=== PATIENT | male | born 1955 | race Caucasian/White ===

== ENCOUNTER → 2017-06-24 16:55 | Outpatient (CLI) | payer OTHER, SELFPAY ==
--- NOTE | 2017-06-24 17:18 | MRI_ITS ---
STUDY: MRI CERVICAL SPINE WITH AND WITHOUT CONTRAST REASON FOR EXAM: Male, 61 years old. Status post neck fusion 09/2016, with complaints of numbness of the bilateral hands and throbbing pain in the area of fusion. TECHNIQUE: Standardized fat and water weighted pulse sequences were obtained in the sagittal and axial following I.V. administration of 10 ml of Gadavist contrast material. COMPARISON: None FINDINGS: Normal foramen magnum and brainstem-cervical cord junction. Normal craniovertebral junction. Normal anterior atlantoaxial articulation. Normal odontoid process. Normal cervical lordosis. Degenerative vertebral bodies and posterior osseous elements. Posterior laminectomy changes extending from C3 through C7. No evidence of posterior fluid collection or significant posterior soft tissue edema. Multilevel facet fusion hardware extending from C3 through C7 are present. C2-3: Disc desiccation is noted at this level with mild right para foraminal disc bulge without associated spinal canal narrowing or foraminal narrowing. C3-4: Disc degenerative change and disc osteophyte complex eccentric to the right with compounding uncovertebral joint arthropathy resulting in moderate right foraminal narrowing. C4-5: Degenerative disc changes with disc osteophyte complex eccentric to the right with compounding facet arthropathy resulting in moderate right foraminal narrowing. C5-6: Degenerative disc changes and disc osteophyte complex with bilateral uncovertebral joint arthropathy resulting in moderate bilateral foraminal narrowing. No significant spinal canal narrowing. C6-7: Disc osteophyte complex and uncovertebral joint arthropathy resulting in mild bilateral foraminal narrowing. C7-T1: Degenerative disc changes with no associated spinal canal narrowing or foraminal narrowing. Normal cervical cord. Normal visualized soft tissue structures. MRI/Spine Cervical W/WO Contrast IMPRESSION: 1. Posterior laminectomy changes with multilevel facet fusion hardware showing normal alignment without evidence of underlying soft tissue edema or large fluid collection. 2. Multilevel predominantly degenerative changes with probably right areas of moderate foraminal narrowing as described above. Electronically Signed: Yovany Rosenthal DO at 23:49 EST , Service support ,
== END ==
PROVIDERS: Family Provider Family Medicine; PCP Family Medicine; Visit Provider Family Medicine
DX: M54.12 Radiculopathy, cervical region (principal)
CPT/HCPCS: 72156; A9585

== ENCOUNTER → 2017-08-20 08:43 | Outpatient (CLI) | payer OTHER, SELFPAY ==
--- NOTE | 2017-08-20 08:43 | RAD_ITS ---
STUDY: X-RAY - CERVICAL SPINE REASON FOR EXAM: Male, 61 years old. Postoperative evaluation. TECHNIQUE: 4 view(s) of the cervical spine were obtained including flexion and extension views. COMPARISON: None FINDINGS: Normal anterior atlantoaxial articulation. Normal odontoid process. Normal cervical lordosis. The patient is status post laminectomy and posterior interpedicular screw fixation at the C3-C4, C4-C5, C5-C6 and C6-C7 levels. There is multi-level degenerative disc disease with multilevel disc space narrowing. Anterior spondylosis. The soft tissue structures are unremarkable. RAD/Cerv Spine 4 or 5 Views IMPRESSION: Status post laminectomy and fusion at multiple levels as described. There is good alignment. Electronically Signed: Ruben Chavarria MD at 13:39 EDT Tel [phone], Service support ,
--- NOTE | 2017-08-20 09:13 | RAD_ITS ---
STUDY: XR SPINE ENTIRE THORACIC T LUMBAR (W SKULL, CERVICAL AND SACRAL SPINE IF PERFORMED) REASON FOR EXAM: Male, 61 years old. Back pain TECHNIQUE: Radiological exam, spine, entire thoracic and lumbar, including skull, cervical and sacral spine if performed (eg, scoliosis evaluation); 2 or 3 views. COMPARISON: None. FINDINGS: There is a 10 degree levoscoliosis scoliosis of the lumbar spine with the apex of the convexity at the L2-3 level. There is an increase in the normal thoracic kyphosis. Normal thoracic vertebrae and endplates. Normal disc space heights of the thoracic spine. Normal lordosis of the lumbar spine. Normal lumbar vertebrae and endplates. Normal disc space heights of the lumbar spine. The soft tissue structures are unremarkable. RAD/Scoliosis 2 or 3 views IMPRESSION: There is a 10 degree levoscoliosis scoliosis of the lumbar spine with the apex of the convexity at the L2-3 level. There is an increase in the normal thoracic kyphosis. Electronically Signed: Kris Saini MD at 17:09 EDT , Service support ,
== END ==
PROVIDERS: Family Provider Family Medicine; PCP Family Medicine; Visit Provider Orthopaedic Surgery
DX: M54.2 Cervicalgia (principal)
CPT/HCPCS: 72050; 72082